=== PATIENT | female | born 1945 | race American Indian/Alaskan Native ===

== ENCOUNTER 2020-07-03 10:49 | Emergency (ER) | payer MEDICARE, OTHER ==
--- NOTE | 2020-07-03 11:55 | Emergency Department Report ---
ED General Adult HPI - General Chief complaint: Dizziness Stated complaint: FEELING SICK FROM MEDS Time Seen by Provider: 07/03/20 11:34 Source: patient Mode of arrival: Ambulatory Limitations: No Limitations - History of Present Illness Initial comments: This is a 75-year-old female that developed symptoms after taking an oxycodone pill. She has been taking oxycodone for pain related to shingles. She did so this morning. She states that she has "wanted to get off them". She states that the shingles has largely resolved. It had been present in a right thoracic dermatome. She reports no fever or chills. She reports no intercurrent symptoms other than nausea and shakiness which occurred after taking the oxycodone pill. She states that she did not take her blood pressure medicine yet today. Her symptoms are now resolved. -: Gradual Associated Symptoms: denies other symptoms Treatments Prior to Arrival: none - Related Data Home Medications Medication Instructions Recorded Confirmed Last Taken Oxycodone HCl/Acetaminophen 1 each PO Q6HR PRN 07/03/20 07/03/20 07/03/20 [Percocet 7.5/325 mg] amLODIPine 5 mg PO DAILY 07/03/20 07/03/20 06/26/20 Previous Rx's Medication Instructions Recorded Last Taken Type traMADoL [Ultram 50 MG tab] 50 mg PO Q6HR PRN #10 tablet 07/03/20 Unknown Rx Allergies Allergy/AdvReac Type Severity Reaction Status Date / Time No Known Allergies Allergy Unverified 07/03/20 11:02 ED Review of Systems ROS: Stated complaint: FEELING SICK FROM MEDS Other details as noted in HPI Constitutional: see HPI. denies: chills, fever Eyes: denies: eye pain, eye discharge, vision change ENT: denies: ear pain, throat pain Respiratory: denies: cough, shortness of breath, wheezing Cardiovascular: denies: chest pain, palpitations Endocrine: no symptoms reported Gastrointestinal: nausea. denies: abdominal pain, diarrhea Genitourinary: denies: urgency, dysuria, discharge Musculoskeletal: denies: back pain, joint swelling, arthralgia Skin: denies: rash, lesions Neurological: denies: headache, weakness, paresthesias Psychiatric: denies: anxiety, depression Hematological/Lymphatic: denies: easy bleeding, easy bruising ED Past Medical Hx - Past Medical History Previous Medical History?: Yes Hx Hypertension: Yes - Surgical History Past Surgical History?: Yes Additional Surgical History: Hysterectomy - Social History Smoking Status: Never Smoker Substance Use Type: None - Medications Home Medications: Home Medications Medication Instructions Recorded Confirmed Last Taken Type Oxycodone HCl/Acetaminophen 1 each PO Q6HR PRN 07/03/20 07/03/20 07/03/20 History [Percocet 7.5/325 mg] amLODIPine 5 mg PO DAILY 07/03/20 07/03/20 06/26/20 History traMADoL [Ultram 50 MG tab] 50 mg PO Q6HR PRN #10 tablet 07/03/20 Unknown Rx ED Physical Exam - General Limitations: No Limitations General appearance: alert, in no apparent distress - Head Head exam: Present: atraumatic, normocephalic - Eye Eye exam: Present: normal appearance. Absent: scleral icterus - ENT ENT exam: Present: mucous membranes moist - Neck Neck exam: Present: normal inspection - Respiratory Respiratory exam: Present: normal lung sounds bilaterally. Absent: respiratory distress - Cardiovascular Cardiovascular Exam: Present: regular rate, normal rhythm. Absent: systolic murmur, diastolic murmur, rubs, gallop - GI/Abdominal GI/Abdominal exam: Present: soft, normal bowel sounds. Absent: distended, tenderness, guarding, rebound, rigid - Extremities Exam Extremities exam: Present: normal inspection - Back Exam Back exam: Present: normal inspection (Except for resolving rash) - Neurological Exam Neurological exam: Present: alert, oriented X3 - Psychiatric Psychiatric exam: Present: normal affect, normal mood - Skin Skin exam: Present: warm, dry, intact, other (Patient does appear to have a radicular rash on the right which is resolving. There are patches of erythema but no vesicles. There is no signs of superinfection.). Absent: rash ED Course Vital Signs 07/03/20 07/03/20 07/03/20 11:06 11:40 11:49 Temperature 98.7 F Pulse Rate 105 H 76 Respiratory 18 16 Rate Blood Pressure 204/107 Blood Pressure 220/116 181/83 [Right] O2 Sat by Pulse 98 98 98 Oximetry 07/03/20 07/03/20 07/03/20 12:00 12:18 12:30 Temperature Pulse Rate 76 Respiratory Rate Blood Pressure 164/76 164/76 170/61 Blood Pressure [Right] O2 Sat by Pulse 99 98 Oximetry - Reevaluation(s) Reevaluation #1: Patient's prior symptoms have resolved. She states he is starting to feel her shingles pain again. I am going to give her a prescription for tramadol in place of her oxycodone. Further care as an outpatient is indicated. Blood pressure has improved. 07/03/20 13:27 ED Medical Decision Making - Lab Data Result diagrams: 07/03/20 12:05 07/03/20 12:05 Laboratory Results - last 24 hr 07/03/20 07/03/20 12:05 12:05 WBC 6.2 RBC 4.37 Hgb 13.5 Hct 39.7 MCV 91 MCH 31 MCHC 34 RDW 14.7 Plt Count 247 Lymph % (Auto) 27.7 Morrison % (Auto) 8.8 H Eos % (Auto) 0.8 Baso % (Auto) 0.4 Lymph # (Auto) 1.7 Morrison # (Auto) 0.5 Eos # (Auto) 0.0 Baso # (Auto) 0.0 Seg Neutrophils % 62.3 Seg Neutrophils # 3.9 Sodium 137 Potassium 4.2 Chloride 100.4 Carbon Dioxide 25 Anion Gap 16 BUN 12 Creatinine 0.7 Estimated GFR > 60 BUN/Creatinine Ratio 17 Glucose 92 Calcium 9.5 Critical care attestation.: If time is entered above; I have spent that time in minutes in the direct care of this critically ill patient, excluding procedure time. ED Disposition Clinical Impression: Poorly-controlled hypertension Adverse effects of medication Qualifiers: Encounter type: initial encounter Qualified Code(s): T50.905A - Adverse effect of unspecified drugs, medicaments and biological substances, initial encounter Disposition: -01 TO HOME OR SELFCARE Is pt being admited?: No Does the pt Need Aspirin: No Condition: Stable Instructions: Hypertension (ED) Additional Instructions: I would recommend that you discontinue the oxycodone. You may try the prescription for tramadol. Other medications may be appropriate started shingles pain persist. Follow-up with your primary care provider. Return to the emergency department any acute change or problem. Prescriptions: traMADoL [Ultram 50 MG tab] 50 mg PO Q6HR PRN #10 tablet PRN Reason: Pain Referrals: Usual, primary care [Other] - 2-3 Days Time of Disposition: 13:28
[2020-07-03] MEDS ORDERED: amLODIPine 5 MG TAB PO ONE (12:16)
[2020-07-03 12:22] LABS: Basophils % (Auto) 0.4 % (0.0-1.8); Eosinophils % (Auto) 0.8 % (0.0-4.3); Hematocrit 39.7 % (30.3-42.9); Hemoglobin 13.5 gm/dl (10.1-14.3); Lymphocytes # (Auto) 1.7 K/mm3 (1.2-5.4); Lymphocytes % (Auto) 27.7 % (13.4-35.0); Mean Corpuscular HGB Conc 34 % (30-34); Mean Corpuscular Volume 91 fl (79-97); Monocytes # (Auto) 0.5 K/mm3 (0.0-0.8); Monocytes % (Auto) 8.8 % (0.0-7.3); Platelet Count 247 K/mm3 (140-440); Red Blood Count 4.37 M/mm3 (3.65-5.03); Red Cell Distribution Width 14.7 % (13.2-15.2)
[2020-07-03 12:41] LABS: Blood Urea Nitrogen 12 mg/dL (7-17); Calcium 9.5 mg/dL (8.4-10.2); Hemolysis Index 48
[2020-07-03 12:43] LABS: BUN/Creatinine Ratio 17
[2020-07-03 14:03] VITALS: BP 144/53
== END 2020-07-03 13:50 | disposition home or self-care (01) ==
LOC: ED 10:49
DX: R42 Dizziness and giddiness (principal); T40.2X5A Adverse effect of other opioids, initial encounter; I10 Essential (primary) hypertension; R11.0 Nausea; Z90.710 Acquired absence of both cervix and uterus; Z79.899 Other long term (current) drug therapy; Y92.89 Other specified places as the place of occurrence of the external cause
CPT/HCPCS: 36415; 80048; 85025; 93005